=== PATIENT | female | born 1950 | race Caucasian/White ===

== ENCOUNTER → 2017-08-10 | Outpatient (CLI) | payer BC | END | disposition home or self-care (01) | LOC: C.LABSPEC 14:34 | PROVIDERS: ATTEND Internal Medicine | DX: Z12.11 Encounter for screening for malignant neoplasm of colon (principal) ==

== ENCOUNTER → 2017-08-27 | Outpatient (CLI) | payer BC ==
--- NOTE | 2017-08-27 15:21 | DIAGNOSTIC IMAGING REPORT ---
BILATERAL LOWER EXTREMITY VENOUS DOPPLER HISTORY: Acute bilateral lower extremity swelling status post surgery S/P SURGERY COMPARISON STUDY: None. FINDINGS: There is normal compressibility, flow, and augmentation within the bilateral lower extremity deep venous systems. IMPRESSION: No sonographic evidence of deep venous thrombosis within the right or left lower extremity. Electronically signed by: Poli Zapien M.D. 08/27/2017 3:19 PM Dictated Date/Time: 08/27/2017 3:17 PM
== END | disposition home or self-care (01) ==
LOC: C.ULTRBC 14:41
PROVIDERS: ATTEND Surgery
DX: M48.00 Spinal stenosis, site unspecified (principal); R60.9 Edema, unspecified

== ENCOUNTER → 2017-09-03 | Outpatient (CLI) | payer BC ==
[~2017-09-03] MED LIST: DOXY50CA26 PO; HYDR-5688 PO; MULT-190 PO; MULT-506 PO; POLY335019 PO; SENN8.6T45 PO
--- NOTE | 2017-09-03 12:20 | DIAGNOSTIC IMAGING REPORT ---
BILATERAL LOWER EXTREMITY VENOUS DOPPLER CLINICAL HISTORY: Severe postoperative lower extremity edema. COMPARISON STUDY: Bilateral lower extremity venous Doppler August 27, 2017. TECHNIQUE: Sonography of the deep venous system of the bilateral lower extremities was performed. Compression and augmentation were evaluated. FINDINGS: The bilateral common femoral, superficial femoral and popliteal veins were compressible. Augmentation was normal. Flow was shown within the deep calf vessels. Left lower extremity edema was noted. IMPRESSION: No evidence of deep venous thrombus within the bilateral lower extremities. Electronically signed by: Ibrahima Mcadams M.D. 09/03/2017 12:19 PM Dictated Date/Time: 09/03/2017 12:17 PM
== END | disposition home or self-care (01) ==
LOC: C.ULTRBC 11:38
PROVIDERS: ATTEND Internal Medicine
DX: R60.0 Localized edema (principal); Z98.890 Other specified postprocedural states

== ENCOUNTER 2017-09-05 16:22 | Emergency (ER) | payer BC ==
[2017-09-05] MEDS ORDERED: ONDANSETRON INJ 2 MG/ML 2 ML VIAL IV STA (16:35)
[2017-09-05 16:59] LABS: BASO % 0.5 %; BASO ABS # 0.04 K/uL (0-0.2); COMPLETE YES; HEMATOCRIT 31.2 % (37-47); IG% 0.1 %; LYMPH % 13.2 %; MEAN CELL VOLUME 95.7 fL (80-100); MEAN CORPUSCULAR HEMOGLOBIN 31.3 pg (25-34); MEAN CORPUSCULAR HGB CONC 32.7 g/dl (32-36); MEAN PLATELET VOLUME 8.7 fL (7.4-10.4); MONO % 11.9 %; NEUT % 71.3 %; PLATELET COUNT 318 K/uL (130-400); RED BLOOD COUNT 3.26 M/uL (4.2-5.4); WHITE BLOOD COUNT 7.56 K/uL (4.8-10.8)
[2017-09-05] MEDS ORDERED: OPTIRAY 320 IV PRN (17:00)
[2017-09-05 17:05] LABS: URINE APPEARANCE CLEAR (CLEAR); URINE BILIRUBIN NEG (NEG); URINE COLOR YELLOW; URINE EPITHELIAL CELL AUTO 20-30 /lpf (0-5); URINE NITRITE NEG (NEG); URINE SPECIFIC GRAVITY 1.008 (1.000-1.030); UROBILINOGEN NEG (NEG)
[2017-09-05 17:06] LABS: MANUAL MICROSCOPIC REQUIRED? NO; REVIEW REQ? NO
--- NOTE | 2017-09-05 17:07 | EMERGENCY ROOM VISIT NOTE ---
History Report prepared by Joel: Shoshana Dinh Under the Supervision of: Dr. Dash Maldonado D.O. First contact with patient: 16:24 Stated Complaint: AB PAIN History of Present Illness The patient is a 67 year old female who presents to the Emergency Room with complaints of persistent abdominal pain starting 2.5 weeks ago. The patient presents to the ED by EMS. She had spinal surgery 2.5 weeks ago for spinal stenosis and has been having abdominal pain and leg swelling since. Today she was lying flat when she started having a lot of pain in her abdomen. He has been on Vicodin since then. She last took Vicodin at 1000. She has been having bowel movements. Her last good bowel movement was 4 days ago. Her abdomen is distended. Her abdominal pain improves when she is sitting up or standing and worsens when she lies down. She is still having back pain. She saw her doctor 5 days ago who told her that the swelling is normal and that the incisions were healing well. She has a history of tubal ligation and oophorectomy. Source of History: patient, EMS Onset: 2.5 weeks ago Position: abdomen Quality: other (pain) Timing: other (persistent) Modifying Factors (Worsening): other (lying down) Modifying Factors (Relieving): other (standing up) Associated Symptoms: + back pain Note: Pt reports abdominal distension, leg swelling. Review of Systems See HPI for pertinent positives & negatives. A total of 10 systems reviewed and were otherwise negative. Past Medical & Surgical Surgical Problems: (1) History of back surgery Family History No pertinent family history stated. Social History Marital Status: single Occupation Status: retired Current/Historical Medications Scheduled Doxycycline (Monohydrate) (Doxycycline), 50 MG PO QPM Multivitamin (Multivitamin), 1 TAB PO DAILY Ocuvite Preservision (Ocuvite Preservision), 1 TAB PO BID Sennosides (Senna-Tabs), 2 TAB PO BID Scheduled PRN Hydrocodone/Acetaminophen 5MG/325MG ([place] 5MG/325MG), 1 TABLET PO Q6 PRN for Pain Polyethylene Glycol 3350 (Miralax), 17 GM PO DAILY PRN for Constipation Allergies Coded Allergies: No Known Allergies (Unverified , 09/05/17) Physical Exam Vital Signs Date Time Temp Pulse Resp B/P (MAP) Pulse Ox O2 Delivery O2 Flow Rate FiO2 09/05/17 21:08 36.8 96 15 146/79 95 09/05/17 21:07 96 15 95 Room Air 09/05/17 19:39 146/79 09/05/17 19:37 96 15 95 09/05/17 19:07 94 21 09/05/17 18:37 107 23 09/05/17 18:32 106 21 118/91 100 09/05/17 18:02 110 18 100 09/05/17 17:32 92 24 97 09/05/17 17:27 88 17 97 09/05/17 17:22 95 27 100 09/05/17 16:27 121/109 09/05/17 16:22 36.8 92 18 121/109 100 Room Air Physical Exam GENERAL: Patient is awake, alert, very anxious, and uncomfortable appearing. EYES: The conjunctivae are clear. The pupils are round and reactive. EARS, NOSE, MOUTH AND THROAT: The nose is without any evidence of any deformity. Mucous membranes are moist tongue is midline NECK: The neck is nontender and supple. RESPIRATORY: Normal respiratory effort is noted there is no evidence of wheezing rhonchi or rales CARDIOVASCULAR: Regular rate and rhythm noted there no murmurs rubs or gallops normal S1 normal S2 GASTROINTESTINAL: The abdomen is moderately distended with LLQ tenderness to palpation. Post op site noted in the LLQ. No erythema, drainage, or dehiscence. BACK: Post op site noted in the lumbar spine. No erythema, drainage, or dehiscence. MUSCULOSKELETAL/EXTREMITIES: There is no evidence of gross deformity full range of motion is noted in the hips and shoulders SKIN: There is no obvious evidence of any rash. There are no petechiae, pallor or cyanosis noted. Pedal edema bilaterally. NEUROLOGIC: Patient is awake alert and oriented x3 Medical Decision & Procedures ER Provider Diagnostic Interpretation: X-ray results as stated below per interpretation by me and the radiologist. Radiology results as stated below per my review and radiologist interpretation: CHEST ONE VIEW PORTABLE CLINICAL HISTORY: Abdominal pain. COMPARISON STUDY: No previous studies for comparison. FINDINGS: Lung volumes are normal. No pneumothorax or pleural effusion is present. No consolidation is identified. Pulmonary vascularity is normal. Cardiomediastinal silhouette is normal. IMPRESSION: No acute cardiopulmonary findings. Electronically signed by: Ibrahima Mcadams M.D. 09/05/2017 5:17 PM Dictated Date/Time: 09/05/2017 5:[address] OF THE ABDOMEN AND PELVIS WITH CONTRAST CLINICAL HISTORY: Left lower quadrant pain. Recent spine surgery. COMPARISON STUDY: CT of the abdomen and pelvis January 16, 2013. TECHNIQUE: Following IV administration of Optiray-320, axial images of the abdomen and pelvis were obtained from the lung bases to the proximal femurs. Images were reviewed in the axial, sagittal, and coronal planes. IV contrast was administered without complication. A dose lowering technique was utilized adhering to the principles of ALARA. CT DOSE: 553.23 mGy.cm FINDINGS: Bilateral breast implants are partially imaged. A right hepatic lobe cyst is noted. The spleen, adrenal glands, right kidney and pancreas are unremarkable. There is mild to moderate left hydroureteronephrosis likely due to mass effect upon the mid left ureter due to a large water attenuation 20 cm x 13 cm x 17 cm left lower quadrant abdominal fluid collection. This is likely extraperitoneal in location. A small amount of ascites is also noted. No additional fluid collections are present. Postoperative findings within the spine are suboptimally assessed by CT. There is no evidence for a bowel obstruction. Mild infiltration of the anterior abdominal wall is noted. The bladder is mildly distended. There is no pneumatosis, free air or portal venous gas. IMPRESSION: 1. Large water attenuation left lower quadrant anterior intra-abdominal fluid collection which measures approximately 20 x 13 x 17 cm. A seroma is favored, likely extraperitoneal in location. The fluid collection extends toward the operative bed of the anterior spinal surgery. A lymphocele could appear similar. A pseudomeningocele is considered much less likely. Mass effect upon the left ureter with mild to moderate left hydronephrosis. Findings discussed with Dr. Kate Domínguez at time of dictation. 2. Small amount of fluid within the pelvis. Electronically signed by: Ibrahima Mcadams M.D. 09/05/2017 6:30 PM Dictated Date/Time: 09/05/2017 6:20 PM Laboratory Results 09/05/17 16:45 Red Blood Count 3.26, Mean Corpuscular Volume 95.7, Mean Corpuscular Hemoglobin 31.3, Mean Corpuscular Hemoglobin Concent 32.7, Mean Platelet Volume 8.7, Neutrophils (%) (Auto) 71.3, Lymphocytes (%) (Auto) 13.2, Monocytes (%) (Auto) 11.9, Eosinophils (%) (Auto) 3.0, Basophils (%) (Auto) 0.5, Neutrophils # (Auto ) 5.38, Lymphocytes # (Auto) 1.00, Monocytes # (Auto) 0.90, Eosinophils # (Auto ) 0.23, Basophils # (Auto) 0.04 09/05/17 16:45 Test 09/05/17 16:45 White Blood Count 7.56 K/uL (4.8-10.8) Red Blood Count 3.26 M/uL (4.2-5.4) Hemoglobin 10.2 g/dL (12.0-16.0) Hematocrit 31.2 % (37-47) Mean Corpuscular Volume 95.7 fL (80-100) Mean Corpuscular Hemoglobin 31.3 pg (25-34) Mean Corpuscular Hemoglobin Concent 32.7 g/dl (32-36) Platelet Count 318 K/uL (130-400) Mean Platelet Volume 8.7 fL (7.4-10.4) Neutrophils (%) (Auto) 71.3 % Lymphocytes (%) (Auto) 13.2 % Monocytes (%) (Auto) 11.9 % Eosinophils (%) (Auto) 3.0 % Basophils (%) (Auto) 0.5 % Neutrophils # (Auto) 5.38 K/uL (1.4-6.5) Lymphocytes # (Auto) 1.00 K/uL (1.2-3.4) Monocytes # (Auto) 0.90 K/uL (0.11-0.59) Eosinophils # (Auto) 0.23 K/uL (0-0.5) Basophils # (Auto) 0.04 K/uL (0-0.2) RDW Standard Deviation 45.3 fL (36.4-46.3) RDW Coefficient of Variation 12.9 % (11.5-14.5) Immature Granulocyte % (Auto) 0.1 % Immature Granulocyte # (Auto) 0.01 K/uL (0.00-0.02) Prothrombin Time 11.0 SECONDS (9.0-12.0) Prothromb Time International Ratio 1.0 (0.9-1.1) Activated Partial Thromboplast Time 20.8 SECONDS (21.0-31.0) Partial Thromboplastin Ratio 0.8 Urine Color YELLOW Urine Appearance CLEAR (CLEAR) Urine pH 8.0 (4.5-7.5) Urine Specific [place] 1.008 (1.000-1.030) Urine Protein NEG (NEG) Urine Glucose (UA) NEG (NEG) Urine Ketones 1+ (NEG) Urine Occult Blood NEG (NEG) Urine Nitrite NEG (NEG) Urine Bilirubin NEG (NEG) Urine Urobilinogen NEG (NEG) Urine Leukocyte Esterase MODERATE (NEG) Urine WBC (Auto) 1-5 /hpf (0-5) Urine RBC (Auto) 0-4 /hpf (0-4) Urine Hyaline Casts (Auto) 1-5 /lpf (0-5) Urine Epithelial Cells (Auto) 20-30 /lpf (0-5) Urine Bacteria (Auto) NEG (NEG) Anion Gap 11.0 mmol/L (3-11) Estimated GFR () 106.3 Estimated GFR (Non- 91.7 BUN/Creatinine Ratio 18.4 (10-20) Calcium Level 9.9 mg/dl (8.5-10.1) Total Bilirubin 0.5 mg/dl (0.2-1) Direct Bilirubin < 0.1 mg/dl (0-0.2) Aspartate Amino Transf (AST/SGOT) 16 U/L (15-37) Alanine Aminotransferase (ALT/SGPT) 14 U/L (12-78) Alkaline Phosphatase 79 U/L (45-117) Total Creatine Kinase 89 U/L (26-192) Creatine Kinase MB 1.4 ng/ml (0.5-3.6) Creatine Kinase MB Ratio 1.6 (0-3.0) Troponin I < 0.015 ng/ml (0-0.045) Total Protein 7.3 gm/dl (6.4-8.2) Albumin 3.4 gm/dl (3.4-5.0) Amylase Level 28 U/L (25-115) Lipase 85 U/L (73-393) Laboratory results per my review. Medications Administered Medications (Trade) Dose Ordered Sig/Marycruz Route Start Time Stop Time Status Last Admin Dose Admin Morphine Sulfate (MoRPHine SULFATE INJ) 4 mg Q15M PRN IV 09/05/17 16:45 09/19/17 16:44 09/05/17 21:04 4 MG Ondansetron HCl (Zofran Inj) 4 mg NOW STAT IV 09/05/17 16:35 09/05/17 16:37 DC 09/05/17 17:19 4 MG Sodium Chloride 1,000 ml @ 250 mls/hr Q4H STAT IV 09/05/17 18:21 09/05/17 22:20 09/05/17 18:33 250 MLS/HR ECG Indication: abdominal pain Rate (beats per minute): 87 Rhythm: normal sinus Findings: no ectopy, other (no acute ST segment abnormality) Comparison ECG Date: no prior available ED Course 1623: The patient was evaluated in room A10. A complete history and physical examination were performed. 163: Zofran Inj 4 mg IV. 164: Morphine Sulfate 4 mg IV. 1811: I discussed the patient's case with Dr. Santiago, [facility] internal medicine. He recommends transfer to where the surgery was done. 1820: NSS 1000 ml @ 250 mls/hr IV. 1831: I discussed the patient's case with Dr. Guo, general surgery [place]. He has accepted the patient for transfer. 1927: I reevaluated the patient. She is resting comfortably. I discussed the results with her. She verbalized agreement of the treatment plan. She will be transferred to [place] for further care. Medical Decision Prior records/ancillary studies reviewed. Triage Nursing notes reviewed. Additional history obtained from EMS. The patient's history was concerning for abdominal pain. Differential diagnosis: Etiologies such as appendicitis, diverticulitis, PUD, biliary pathology, UTI, pancreatitis, obstruction, mesenteric ischemia, aortic pathology, infections, inflammatory bowel disease, renal colic, as well as others were entertained. The patient is a 67-year-old female who presented to emergency department for abdominal distention and pain. The patient is status post lumbar spine surgery. She had an intra-abdominal process as well as a lumbar spine approach. The patient appears to have significant left-sided abdominal pain on physical exam. CT revealed a large fluid-filled area which could be consistent with seroma. The patient did not have fever or elevated white blood cell count. I discussed the patient's laboratory and radiographic studies with her. Her primary care physician also called the emergency department did discuss the case with me. Since the patient's surgery was done in [place] I discussed her case with the covering general surgeon they've agreed to accept the patient in transfer for further management and disposition. The patient was treated with IV fluids IV pain medicine and IV antiemetics. On subsequent reevaluation she was feeling much better. Medication Reconcilliation Current Medication List: was personally reviewed by me Blood Pressure Screening Patient's blood pressure: Normal blood pressure Blood pressure disposition: Did not require urgent referral Consults Consulting Physician: Dr. Santiago, [facility] internal medicine Returned Call: [phone] I discussed the patient's case with him. He recommends transfer to where the surgery was done. Additional Consults: Time Called: 1824 Consulted Physician: Dr. Guo, general surgery [place] Returned Call: [phone] Additional Comments: I discussed the patient's case with him. He has accepted the patient for transfer. Impression Primary Impression: Postoperative seroma Additional Impressions: Postoperative pain Abdominal pain Scribe Attestation The scribe's documentation has been prepared under my direction and personally reviewed by me in its entirety. I confirm that the note above accurately reflects all work, treatment, procedures, and medical decision making performed by me. Departure Information Dispostion Transfer Acute Care Facility Referrals Asael Curran M.D. (PCP) Problem Qualifiers Primary Impression: Postoperative seroma Additional Impressions: Abdominal pain Abdominal location: generalized Qualified Codes: R10.84 - Generalized abdominal pain
[2017-09-05] MEDS ORDERED: MULT-190 PO (17:09)
[2017-09-05] MEDS ORDERED: DOXY50CA26 PO (17:09)
[2017-09-05] MEDS ORDERED: MULT-506 PO (17:09)
[2017-09-05] MEDS ORDERED: HYDR-5688 PO (17:09)
[2017-09-05] MEDS ORDERED: POLY335019 PO (17:09)
[2017-09-05] MEDS ORDERED: SENN8.6T45 PO (17:09)
[2017-09-05 17:15] LABS: PARTIAL THROMBOPLASTIN RATIO 0.8
[2017-09-05 17:17] LABS: AMYLASE 28 U/L (25-115); BLOOD UREA NITROGEN 12 mg/dl (7-18); BUN/CREATININE RATIO 18.4 (10-20); CALCIUM 9.9 mg/dl (8.5-10.1); CARBON DIOXIDE 25 mmol/L (21-32); CHLORIDE 100 mmol/L (98-107); CREATININE 0.64 mg/dl (0.60-1.20); GLUCOSE 100 mg/dl (70-99); POTASSIUM 3.5 mmol/L (3.5-5.1); SODIUM 136 mmol/L (136-145)
--- NOTE | 2017-09-05 17:18 | DIAGNOSTIC IMAGING REPORT ---
CHEST ONE VIEW PORTABLE CLINICAL HISTORY: Abdominal pain. COMPARISON STUDY: No previous studies for comparison. FINDINGS: Lung volumes are normal. No pneumothorax or pleural effusion is present. No consolidation is identified. Pulmonary vascularity is normal. Cardiomediastinal silhouette is normal. IMPRESSION: No acute cardiopulmonary findings. Electronically signed by: Ibrahima Mcadams M.D. 09/05/2017 5:17 PM Dictated Date/Time: 09/05/2017 5:16 PM
[2017-09-05] MEDS: MoRPHine SULFATE 4 MG/ML 1 ML CARP\\VIAL IV PRN ×3 (17:19→21:04)
[2017-09-05 17:22] LABS: ALKALINE PHOSPHATASE 79 U/L (45-117); ALT/SGPT 14 U/L (12-78); AST/SGOT 16 U/L (15-37); CKMB/CK RATIO 1.6 (0-3.0)
[2017-09-05] MEDS ORDERED: SODIUM CHLORIDE 0.9% 1000ML 1,000 ML IV STA (18:21)
--- NOTE | 2017-09-05 18:32 | DIAGNOSTIC IMAGING REPORT ---
CT OF THE ABDOMEN AND PELVIS WITH CONTRAST CLINICAL HISTORY: Left lower quadrant pain. Recent spine surgery. COMPARISON STUDY: CT of the abdomen and pelvis January 16, 2013. TECHNIQUE: Following IV administration of Optiray-320, axial images of the abdomen and pelvis were obtained from the lung bases to the proximal femurs. Images were reviewed in the axial, sagittal, and coronal planes. IV contrast was administered without complication. A dose lowering technique was utilized adhering to the principles of ALARA. CT DOSE: 553.23 mGy.cm FINDINGS: Bilateral breast implants are partially imaged. A right hepatic lobe cyst is noted. The spleen, adrenal glands, right kidney and pancreas are unremarkable. There is mild to moderate left hydroureteronephrosis likely due to mass effect upon the mid left ureter due to a large water attenuation 20 cm x 13 cm x 17 cm left lower quadrant abdominal fluid collection. This is likely extraperitoneal in location. A small amount of ascites is also noted. No additional fluid collections are present. Postoperative findings within the spine are suboptimally assessed by CT. There is no evidence for a bowel obstruction. Mild infiltration of the anterior abdominal wall is noted. The bladder is mildly distended. There is no pneumatosis, free air or portal venous gas. IMPRESSION: 1. Large water attenuation left lower quadrant anterior intra-abdominal fluid collection which measures approximately 20 x 13 x 17 cm. A seroma is favored, likely extraperitoneal in location. The fluid collection extends toward the operative bed of the anterior spinal surgery. A lymphocele could appear similar. A pseudomeningocele is considered much less likely. Mass effect upon the left ureter with mild to moderate left hydronephrosis. Findings discussed with Dr. Kate Domínguez at time of dictation. 2. Small amount of fluid within the pelvis. Electronically signed by: Ibrahima Mcadams M.D. 09/05/2017 6:30 PM Dictated Date/Time: 09/05/2017 6:20 PM
[2017-09-05 21:08] VITALS: BP 146/79; PULSE 96; TEMP 36.8; O2SAT 95
== END 2017-09-05 21:17 | disposition short-term general hospital (02) ==
LOC: EDBD 16:22 → C.EDA 16:23
DX: G89.18 Other acute postprocedural pain (principal); M96.842 Postprocedural seroma of a musculoskeletal structure following a musculoskeletal system procedure; R10.9 Unspecified abdominal pain; Z98.890 Other specified postprocedural states; Z79.899 Other long term (current) drug therapy